=== PATIENT | male | born 1975 | race Caucasian/White ===

== ENCOUNTER 2021-04-20 08:19 | Emergency (ER) | payer SELFPAY ==
[~2021-04-20] VITALS: Ht 180.3 cm; Wt 95.0 kg
[2021-04-20] MEDS ORDERED: ONDANSETRON HCL 4MG/2ML INJ IV STA (08:40)
[2021-04-20] MEDS ORDERED: PANTOPRAZOLE SODIUM 40 MG/VIAL IV STA (08:40)
[2021-04-20] MEDS ORDERED: FAMOTIDINE 20MG/2ML VIAL IV STA (08:40)
[2021-04-20] MEDS ORDERED: SODIUM CHLORIDE 0.9% 1,000 ML IV ONE (08:45)
[2021-04-20 09:38] LABS: BASOPHILS % 1.1 % (0.0-2.0); EOSINOPHILS % 1.1 % (0.0-5.0); HEMATOCRIT. 43.5 % (42.0-52.0); HEMOGLOBIN. 14.6 g/dL (14.0-18.0); LYMPHOCYTES % 18.1 % (20.0-50.0); MEAN CORPUSCULAR HEMOGLOBIN 28.3 pg (28.0-32.0); MEAN CORPUSCULAR VOLUME 84.2 fL (80.0-94.0); MEAN PLATELET VOLUME 8.4 fl (7.4-10.4); MONOCYTES % 4.7 % (2.0-8.0); PLATELET 298 x1000/uL (130-400); RED BLOOD CELL COUNT 5.17 mill/uL (4.7-6.1); RED CELL DISTRIBUTION WIDTH 14.1 % (11.6-14.6)
[2021-04-20 09:39] LABS: CHLORIDE 105 mEq/L (98-107)
[2021-04-20 09:39] LABS: INR 1.1; PROTHROMBIN TIME 11.3 sec (9.6-11.0)
[2021-04-20 10:32] LABS: CLARITY URINE CLEAR (CLEAR); COLOR URINE YELLOW (YELLOW); KETONES URINE NEGATIVE (NEGATIVE); LEUKOCYTE ESTERASE URINE NEGATIVE (NEGATIVE); NITRITE URINE NEGATIVE (NEGATIVE); OCCULT BLOOD URINE 2+ (NEGATIVE); PROTEIN URINE 1+ (NEGATIVE); SPECIFIC GRAVITY URINE 1.031 (1.005-1.030); UROBILINOGEN URINE 0.2 E.U./dL (0.2-1.0)
[2021-04-20] MEDS ORDERED: KETOROLAC 30MG/ML VIAL IV ONE (12:15)
[2021-04-20] MEDS ORDERED: TAMSULOSIN HCL 0.4MG SR CAPSULE PO ONE (14:00)
[2021-04-20 14:01] VITALS: BP 138/74
[2021-04-20] MEDS ORDERED: ONDA4TAB11 PO (14:09)
[2021-04-20] MEDS ORDERED: TAMS-11 MT (14:09)
== END 2021-04-20 14:32 | disposition home or self-care (01) ==
LOC: ER 08:19
DX: N20.0 Calculus of kidney (principal); R73.9 Hyperglycemia, unspecified; F12.10 Cannabis abuse, uncomplicated
CPT/HCPCS: 36415; 74176; 80053; 81003; 83690; 85025; 85610; 96361; 96374; 96375; 99285; C9113; J1885; J2405; J3490; J7030; Z7610